=== PATIENT | female | born 1995 | race Two or more races ===

== ENCOUNTER 2016-04-09 16:07 | Emergency (ER) | payer MEDICAID, OTHER ==
[~2016-04-09] VITALS: Ht 165.1 cm; Wt 59.0 kg
[~2016-04-09 16:07] MED LIST: IBUPROFEN600 MG ORAL; IBUPROFEN600 MG PO; KEFLEX500 MG ORAL; NKM; NORCO 5-325 TA1 EACH ORAL
[2016-04-09 16:24] VITALS: BP 106/71
--- NOTE | 2016-04-09 16:47 | Emergency Room Report ---
History of Present Illness General Chief Complaint: Pain Source: Patient (JOSEFINA LUNSFORD) Present Illness HPI The patient is a 21-year-old female presenting with right third finger pain which began 3 days prior after hitting it against a wall. The patient denies prior injury to the finger. The pain is localized to the finger and does not radiate. Pain is worse with movement of the finger. The pain is described as an 8/10 dull ache. The patient denies any numbness or tingling (JOSEFINA LUNSFORD) Allergies: Coded Allergies: No Known Allergies (Unverified , 05/31/13) Patient History Past Medical History: see triage record Pertinent Family History: none Last Menstrual Period: 03/11/16 Now: No Reviewed Nursing Documentation: PMH: Agreed, PSxH: Agreed (JOSEFINA LUNSFORD) Nursing Documentation-PMH Past Medical History: No Stated History (JOSEFINA LUNSFORD) Review of Systems All Other Systems: negative except mentioned in HPI (JOSEFINA LUNSFORD) Physical Exam Vital Signs Date Time Temp Pulse Resp B/P Pulse Ox O2 Delivery O2 Flow Rate FiO2 04/09/16 16:20 98.4 99 14 106/71 97 Room Air Sp02 EP Interpretation: reviewed, normal General Appearance: no apparent distress, alert, GCS 15, non-toxic Head: normocephalic, atraumatic Musculoskeletal: back normal, gait/station normal, normal range of motion, tender - TTP over the 3rd digit PIPJ Neurologic: alert, oriented x3, responsive, motor strength/tone normal, sensory intact, speech normal Psychiatric: judgement/insight normal, memory normal, mood/affect normal, no suicidal/homicidal ideation Skin: normal color, no rash, warm/dry, well hydrated (JOSEFINA LUNSFORD.[email or web address]) Procedures Splinting Splinting : Consent: Verbal Location: R 3rd finger" Pre-Made Type: metal Splint: finger Pre-Proc Neuro Vasc Exam: normal Post-Proc Neuro Vasc Exam: normal Patient Tolerated: Well Complications: None (JOSEFINA LUNSFORD) Medical Decision Making PA Attestation Dr. Thompson is my supervising physician. Patient management was discussed with my supervising physician (JOSEFINA LUNSFORD) Diagnostic Impression: Primary Impression: Finger sprain ER Course The patient is a 21-year-old female presenting with right third finger pain which began 3 days prior after hitting it against a wall. Ddx considered include but not limited to sprain/strain, fracture, contusion PE: Vitals WNL. NAD R hand: 1+ edema to 3rd PIPJ. TTP over this area. Full AROM. SILT. No deviation. No laxity. Xray of hand unremarkable. Pt given motrin for pain and finger is placed in splint. ER precautions given. (JOSEFINA LUNSFORD.[email or web address]) ER Course I agree with PA HPI and PE, as well as their assessment/plan. I also concur with PA review of imaging and rhythm strip without additional interpretation. (MESHA THOMPSON M.D.) Other X-Ray Diagnostic Results Other X-Ray Diagnostic Results : X-Ray Ordered: R hand Date: Apr 09, 2016 EP Interpretation: Yes Findings: no fractures, no dislocation, no soft tissue swelling Number of Views: 3 PA Scribe Text I am acting as scribe for my supervising physician. My supervising physician's interpretation of the R hand xrays are there are no fractures, dislocations or soft tissue swelling. (JOSEFINA LUNSFORD) Last Vital Signs Date Time Temp Pulse Resp B/P Pulse Ox O2 Delivery O2 Flow Rate FiO2 04/09/16 16:24 98.4 80 14 106/71 97 Room Air Status: improved (JOSEFINA LUNSFORD P.A.) Disposition: HOME, SELF-CARE Condition: Improved Scripts Ibuprofen* (MOTRIN*) 600 Mg Tablet 600 MG ORAL Q6H Y for For Pain, #30 TAB Prov: JOSEFINA LUNSFORD 04/09/16 Referrals: NON PHYSICIAN (PCP) JOSEFINA LUNSFORD Apr 09, 2016 16:47 MESHA THOMPSON M.D. Apr 13, 2016 06:47
[2016-04-09] MEDS ORDERED: IBUPROFEN600 MG ORAL (16:59)
[2016-04-09 17:05] VITALS: BP 106/71
--- NOTE | 2016-04-10 10:31 | Diagnostic Imaging Report ---
Indications: Right hand pain Technique: 3 views of the right hand. Findings: Comparison: None. No fracture, dislocation, lytic destruction, periosteal reaction, surrounding soft tissue swelling, or other acute changes are demonstrated. No deformity, alignment abnormality, arthritic change, soft tissue calcification, or other chronic changes are demonstrated. IMPRESSION: Negative right hand series.
== END 2016-04-09 17:02 | disposition home or self-care (01) ==
LOC: EMR 16:43
DX: S63.612A Unspecified sprain of right middle finger, initial encounter (principal); W22.8XXA Striking against or struck by other objects, initial encounter; Y92.89 Other specified places as the place of occurrence of the external cause; Y99.8 Other external cause status
CPT/HCPCS: 29130; 99283